=== PATIENT | male | born 1960 | race Caucasian/White ===

== ENCOUNTER 2019-06-30 02:44 | Inpatient (IN) | payer OTHER ==
[~2019-06-30] VITALS: Ht 180.3 cm; Wt 78.5 kg
[2019-06-30] MEDS ORDERED: ONDANSETRON HCL/PF 4 MG/2 ML VIAL ONE (02:54)
[2019-06-30] MEDS ORDERED: MORPHINE SULFATE INJ 4 MG/ML DISP.SYRIN ONE (02:54)
--- NOTE | 2019-06-30 02:55 | NUR ---
TO BED 3 AMBULATORY C/O LLQ ABDOMINAL PAIN WITH RECTAL BLEEDING X3 DAYS. PT AAOX4 NO ACUTE DISTRESS NOTED, RESP EVEN AND UNLABORED. PLACE PT ON CARDIAC MONITORING, CONTINUOUS POX. PENDING ER MD PATINO.
[2019-06-30] MEDS ORDERED: ONDANSETRON HCL/PF - ER 4 MG/2 ML VIAL IV ONE (03:00)
[2019-06-30] MEDS ORDERED: IV NS 0.9% 500 ML BAG IV ONE (03:00)
[2019-06-30] MEDS ORDERED: MORPHINE SULFATE INJ 2 MG/ML DISP.SYRIN IV ONE (03:00)
[2019-06-30 03:10] LABS: BASOPHILS % (AUTO) 0.3 % (0.0-2.0); EOSINOPHILS % (AUTO) 0.7 % (0.0-6.0); HEMATOCRIT 46 % (39-51); HEMOGLOBIN 15.4 g/dL (13.5-17.5); MEAN CORPUSCULAR HGB CONC 34 g/dl (31.0-36.0); MEAN CORPUSCULAR VOLUME 88 fL (80-96); MONOCYTES # (AUTO) 1.5 /CMM (0.1-1.30); NEUTROPHILS # (AUTO) 12.8 /CMM (1.8-8.9); PLATELET COUNT (AUTO) 246 /CMM (150-450); WHITE BLOOD COUNT (AUTO) 16.5 K/uL (4.3-11.0)
--- NOTE | 2019-06-30 03:14 | NUR ---
PT MEDICATED ORDERED.
[2019-06-30 03:15] LABS: CALCIUM, SERUM 8.7 mg/dL (8.5-10.1); CREATININE 1.2 mg/dL (0.6-1.3); POTASSIUM 3.8 mmol/L (3.5-5.1)
--- NOTE | 2019-06-30 03:15 | NUR ---
PT TRANSPORTED TO RADIOLOGY FOR CT ABD/PELVIS.
--- NOTE | 2019-06-30 03:31 | NUR ---
PT BACK FROM RADIOLOGY. PENDING CT RESULT.
--- NOTE | 2019-06-30 03:39 | NUR ---
ER TALKING TO RADIOLOGIST REGARDING CT ABD/PELVIS RESULT.
[2019-06-30] MEDS ORDERED: METRONIDAZOLE 500MG/ NS 100ML 100 ML IV ONE (03:43)
[2019-06-30] MEDS ORDERED: PIPERACILLIN /TAZOBACTAM 3.375 G VIAL IV ONE (03:44)
[2019-06-30 03:55] LABS: OCCULT BLOOD STOOL POSITIVE (NEGATIVE)
[2019-06-30] MEDS ORDERED: METRONIDAZOLE 500MG/ NS 100ML 500 MG in PREMIX 1 EA IV SCH (04:00)
--- NOTE | 2019-06-30 05:37 | NUR ---
REPORT CALLED TO M/S GEOVANNY CAMPOS.
[2019-06-30] MEDS ORDERED: PIPERACILLIN /TAZOBACTAM 3.375 G in IV D5W 50 ML IV SCH ×2 (06:00→12:00)
[2019-06-30] MEDS ORDERED: IV NS 0.9% 1,000 ML IV PRN ×2 (06:03→09:19)
[2019-06-30 06:30] VITALS: BP 111/74
[2019-06-30] MEDS ORDERED: ONDANSETRON HCL/PF 4 MG/2 ML VIAL IVP PRN (06:30)
[2019-06-30] MEDS ORDERED: MAG HYDROX/AL HYDROX/SIMETH 30 ML UDC PO PRN (06:30)
[2019-06-30] MEDS ORDERED: MAGNESIUM HYDROXIDE 30 ML UDC PO PRN (06:30)
[2019-06-30] MEDS ORDERED: Z GUARD REMEDY 2 OZ OINT TP PRN (06:30)
--- NOTE | 2019-06-30 06:37 | NUR ---
ROSI RN NOTE PT RECEIVED FROM ER WITH THE DX OF PERFORATED COLITIS.. A/O X 4, NO SOB NO DISTRESS NOTED. PT C/O PAIN IN LLQ. ABLE TO AMBULATE WITH STEADY GAIT. ON TELE MONITOR SR HR 72. HL IN LFA #18 G, INTACT AND PATENT. PT WENT TO BATHROOM AND NOTE STOOL WITH PINSIDE RAILS UP X 2 AND CALL LIGHT WITHIN REACH. VSS. WILL ENDORSE TO DAY SHIFT FOR CONTINUE TO CARE AND ADMISSION.
--- NOTE | 2019-06-30 07:00 | NUR ---
0700 DR. DEXTER AT BEDSIDE AND EXAMINED PATIENT WITH ORDERS MADE. ORDER NOTED AND ENDORSED TO ON COMING SHIFT.
--- NOTE | 2019-06-30 07:15 | NUR ---
RN OPENING NOTES PT IS ASLEEP IN BED WITH NS RUNNING AT 75MLS/HR WITH A LFA 18 GAUGE. ACCORDING TO PATIENT SCHEDULING COORDINATOR REPORT PT WILL BE HAVING SURGERY LATER IN THE DAY AND HAS BEEN KEPT NPO SINCE MIDNIGHT. PT HAS EQUAL CHEST RISE AND FALL WITH NO OBVIOUS SIGNS OF PAIN OR SOB. ON TELE MONITOR PT IS SR 68. BED IS LOCKED AND IN LOWEST POSITION WITH CALL LIGHT IN REACH. WILL CONTINUE TO MONITOR.
[2019-06-30 08:00] VITALS: BP 94/54
[2019-06-30] MEDS: PANTOPRAZOLE 40 MG VIAL IV SCH ×2 (08:51→17:35)
[2019-06-30] MEDS: PIPERACILLIN /TAZOBACTAM 3.375 G in IV D5W 100 ML IV SCH ×2 (10:42→19:14)
[2019-06-30] MEDS: METRONIDAZOLE 500MG/ NS 100ML 500 MG in PREMIX 1 EA IV SCH ×2 (11:59→17:35)
[2019-06-30 12:00] VITALS: BP 110/68
[2019-06-30 12:40] LABS: HEMOGLOBIN 13.3 g/dL (13.5-17.5)
--- NOTE | 2019-06-30 13:28 | NUR ---
PT PICKED UP BY [facility] [employer], PT IV STOPPED. PT CONSENT SIGNED AND PT WAS TAKEN BY BED TO OR.
[2019-06-30] MEDS ORDERED: ANESTHESIA TRAY IN PYXIS 1 EA TRAY MC ONE (13:43)
[2019-06-30] MEDS ORDERED: BUPIVACAINE 0.5 % PF 150 MG/30 ML VIAL ONE (13:43)
[2019-06-30] MEDS ORDERED: MIDAZOLAM HCL 2 MG/2ML VIAL ONE (13:50)
[2019-06-30] MEDS ORDERED: FENTANYL PF 100MCG/2ML AMPUL ONE (15:33)
[2019-06-30] MEDS ORDERED: ENOXAPARIN SODIUM 40 MG/0.4 ML DISP.SYRIN SQ SCH (15:52)
[2019-06-30 16:00] VITALS: BP_SYST 139; BP_DIAS 88; BP_DIAS 89
[2019-06-30] MEDS ORDERED: Potassium Chloride 20 MEQ in IV D5 / 0.2% NACL 1,000 ML IV PRN (16:00)
[2019-06-30] MEDS ORDERED: METOCLOPRAMIDE HCL 10 MG/2 ML VIAL IV PRN (16:00)
[2019-06-30] MEDS: IV D5/0.45 NACL W/20 MEQ KCL 1L IV PRN ×2 (17:35)
[2019-06-30] MEDS: MORPHINE SULFATE INJ 2 MG/ML DISP.SYRIN IV PRN (17:42)
[2019-06-30 18:14] LABS: APPEARANCE,URINE Cloudy (CLEAR); BILIRUBIN,URINE SMALL (NEGATIVE); BLOOD, URINE Trace-lysed Ery/uL (NEGATIVE); COLOR,URINE Other (YELLOW); KETONES,URINE 40 (NEGATIVE); LEUKOCYTE ESTERASE ,URINE Negative (NEGATIVE); NITRITE, URINE Negative (NEGATIVE); PROTEIN,URINE Negative (NEGATIVE); UGLUCOSE Negative (NEGATIVE); UROBILINOGEN,URINE 0.2 EU/dL (0.2)
[2019-06-30 19:09] LABS: BACTERIA,URINE Few /HPF (None Seen); SQUAMOUS EPITHELIAL CELL,UR Few /HPF (None Seen); URINE AMORPHOUS URATE Moderate /HPF (None Seen); WBC,URINE 0-2 /HPF (0-3)
--- NOTE | 2019-06-30 19:26 | NUR ---
RN CLOSING NOTES PT STATES HE IS HAVING MILD PAIN STILL IN ABDOMEN BUT REFUSE MEDICATION AT THIS POINT IN TIME. PT IS EASILY AWOKEN. PT CURRENTLY HAS ANTIBIOTICS RUNNING 25 MLS/HR. REPORT GIVEN TO MANAGER INVESTIGATIONS RN FOR CONTINUATION OF CARE.
[2019-06-30 20:00] VITALS: BP 127/83
[2019-06-30] MEDS ORDERED: IV NS 0.9% 250 ML IV ONE (20:00)
--- NOTE | 2019-06-30 20:00 | NUR ---
Received patient A/Ox4.S/P E.Lap,Take down Splenic Flexure,Incidental Appendectomy.Dressing C/D/I. Abdominal binder on.Abdomen soft BS active.Denies pain.Respiration even and unlabored.Encouraged Coughing and deep breathing.Incentive Spirometer provided & encouraged to use Q1hr while awake. VS stable.SR per tele monitoring.NPO with IVF infusing.FC to gravity drainage.Encouraged to turn Q 2 hrs. Patient cooperative with treatment.Continue monitoring.Call light at bedside instructed to call for assistance.
[2019-07-01] VITALS: BP 118/75
[2019-07-01] MEDS: METRONIDAZOLE 500MG/ NS 100ML 500 MG in PREMIX 1 EA IV SCH ×4 (00:06→17:01)
[2019-07-01] MEDS: PIPERACILLIN /TAZOBACTAM 3.375 G in IV D5W 100 ML IV SCH ×3 (03:00→18:10)
[2019-07-01] MEDS: IV D5/0.45 NACL W/20 MEQ KCL 1L IV PRN ×4 (03:06→12:10)
[2019-07-01 04:00] VITALS: BP 120/77
[2019-07-01] MEDS: MORPHINE SULFATE INJ 2 MG/ML DISP.SYRIN IV PRN (04:37)
--- NOTE | 2019-07-01 06:30 | NUR ---
Patient resting in no acute distress.VS stable.Remains NPO with IVF infusing. Pain medication administered.Verbalized relief.All needs anticipated and met. Patient seen by Cruzito Ocampo no new orders received.
[2019-07-01 07:19] LABS: BASOPHILS % (AUTO) 0.1 % (0.0-2.0); EOSINOPHILS % (AUTO) 0.7 % (0.0-6.0); HEMATOCRIT 36 % (39-51); HEMOGLOBIN 12.3 g/dL (13.5-17.5); LYMPHOCYTES # (AUTO) 1.2 /CMM (0.8-4.8); LYMPHOCYTES % (AUTO) 16.4 % (20.0-44.0); MEAN CORPUSCULAR HGB CONC 34 g/dl (31.0-36.0); MEAN CORPUSCULAR VOLUME 88 fL (80-96); MONOCYTES # (AUTO) 0.7 /CMM (0.1-1.30); MONOCYTES % (AUTO) 10.6 % (2.0-12.0); NEUTROPHILS # (AUTO) 5.1 /CMM (1.8-8.9); NEUTROPHILS % (AUTO) 72.2 % (43.0-81.0); PLATELET COUNT (AUTO) 176 /CMM (150-450); RED BLOOD CELL COUNT(AUTO) 4.07 MIL/uL (4.5-6.0)
--- NOTE | 2019-07-01 07:30 | NUR ---
ROSI RN NOTES PT IN BED, AAOX3, S/P EX LAP, TAKE DOWN SPLENIC FLEXURE, INCIDENTAL APPENDECTOMY BY DR. DEXTER 06/30/2019 [facility]I DRESSING WITH ABDOMINAL BINDER IN PLACE. ON RA, DENIES ANY SOB, RESPIRATION UNLABORED, INSPIROMETER AT BEDSIDE, INSTRUCTED TO USE Q 1HOUR WHILE AWAKE. ON CLEAR LIQUID DIET. WILL DC LOPEZ CATHETER TODAY. C/O SCHUMACHER WHEN CHANGING POSITION. WAS GIVEN PAIN MEDICATION EARLIER. ON CLEAR LIQUID DIET. DISCUSSED POC, VERBALIZED UNDERSTANDING. CALL LIGHT WITHIN REACH, WILL CONT TO MONITOR.
[2019-07-01 07:33] LABS: THYROID STIMULATING HORMONE 0.559 uIU/mL (0.358-3.74)
[2019-07-01 07:38] LABS: CALCIUM, SERUM 7.1 mg/dL (8.5-10.1); CREATININE 1.2 mg/dL (0.6-1.3); MAGNESIUM 1.7 mg/dL (1.8-2.4); PHOSPHORUS 2.7 mg/dL (2.5-4.9)
[2019-07-01 08:00] VITALS: BP 108/71
[2019-07-01] MEDS: Magnesium 1GM/D5W 100ML PREMIX 100 ML IV SCH ×2 (09:00→10:01)
[2019-07-01] MEDS: PANTOPRAZOLE 40 MG VIAL IV SCH ×2 (09:00→17:00)
[2019-07-01] MEDS: ENOXAPARIN SODIUM 40 MG/0.4 ML DISP.SYRIN SQ SCH (09:02)
--- NOTE | 2019-07-01 09:30 | NUR ---
MS RN NOTES DC TELE BY DR. PERERA DUE MEDS GIVEN
--- NOTE | 2019-07-01 12:10 | NUR ---
RN NOTES LOPEZ CATH DISCONTINUED. 495 ML OUTPUT.
[2019-07-01 16:00] VITALS: BP 132/90
--- NOTE | 2019-07-01 19:14 | NUR ---
MS RN CLOSING NOTES PT RESTING IN BED, AAOX3, S/P EX LAP, TAKE DOWN SPLENIC FLEXURE, INCIDENTAL APPENDECTOMY BY DR. DEXTER 06/30/2019 CDI DRESSING WITH ABDOMINAL BINDER IN PLACE. ON RA, DENIES ANY SOB, RESPIRATION UNLABORED, ON CLEAR LIQUID DIET. NO LOPEZ. TOTAL URINE OUTPUT 895 ML OUTPUT. CAN TURN FROM SIDE TO SIDE. C/O PAIN WHEN CHANGING POSITION. OFFERED PAIN MEDICATION BUT DECLINED. ON CLEAR LIQUID DIET. ALL NEEDS MET FOR NOW. CALL LIGHT WITHIN REACH, ENDORSED TO NEXT SHIFT FOR MICHELLE.
[2019-07-01 20:00] VITALS: BP 140/79
--- NOTE | 2019-07-01 20:00 | NUR ---
ms rn notes pts in bed awake alert oriented x 4 and verbally responsive ,no sob no distress noted v/s stable afebrile no complain of pain at of this time , pts s/p ex lap no bleeding noted dressing dry and intact, pts on iv fluids of d5 1/2 ns +kcl 20 meq at 125 cc/hr infusing well .all needs attended too due meds given as ordered including iv atb no ase noted, , kept pts clean dry and comfortable ,will continue to monitor pts.
[2019-07-02] MEDS: METRONIDAZOLE 500MG/ NS 100ML 500 MG in PREMIX 1 EA IV SCH ×3 (00:33→12:12)
[2019-07-02] MEDS: IV D5/0.45 NACL W/20 MEQ KCL 1L IV PRN ×2 (00:43)
[2019-07-02] MEDS: PIPERACILLIN /TAZOBACTAM 3.375 G in IV D5W 100 ML IV SCH ×3 (03:17→19:46)
--- NOTE | 2019-07-02 05:30 | NUR ---
ms rnnotes seen and examined by dr alcala today .,with order full liquid oder noted and carried out.well endorse to rn day for continuity of care.
--- NOTE | 2019-07-02 07:05 | NUR ---
MS RN OPENING NOTE RECEIVED REPORT FROM [facility] SHIFT NURSE. PT AWAKE IN BED, ALERT AND ORIENTED X 4, ON ROOM AIR, SATURATING WELL, NO SIGNS OF RESPIRATORY DISTRESS NOTED. INTRODUCED SELF TO PT AND DISCUSSED PLAN OF CARE. REPORTS PAIN AT ABDOMINAL INCISION SITE RATED AT A 4/10, DOES NOT WITH TO TAKE ANY PAIN MEDICATION AT THIS TIME. IV SITE ON LEFT FOREARM G18, PATENT, INTACT, INFUSING IV FLAGYL AT 100ML/HR AND D5/0.45 NACL POTASSIUM CHLORIDE AT 1256ML/HR, NO SIGNS OF INFILTRATION NOTED. BED IN LOW POSITION, LOCKED, CALL LIGHT WITHIN REACH.
[2019-07-02 07:29] LABS: BASOPHILS % (AUTO) 0.3 % (0.0-2.0); EOSINOPHILS % (AUTO) 3.6 % (0.0-6.0); HEMATOCRIT 37 % (39-51); HEMOGLOBIN 12.8 g/dL (13.5-17.5); LYMPHOCYTES # (AUTO) 1.2 /CMM (0.8-4.8); LYMPHOCYTES % (AUTO) 18.6 % (20.0-44.0); MEAN CORPUSCULAR HGB CONC 34 g/dl (31.0-36.0); MEAN CORPUSCULAR VOLUME 88 fL (80-96); MONOCYTES # (AUTO) 0.6 /CMM (0.1-1.30); MONOCYTES % (AUTO) 9.7 % (2.0-12.0); NEUTROPHILS # (AUTO) 4.5 /CMM (1.8-8.9); NEUTROPHILS % (AUTO) 67.8 % (43.0-81.0); PLATELET COUNT (AUTO) 202 /CMM (150-450); RED BLOOD CELL COUNT(AUTO) 4.25 MIL/uL (4.5-6.0); WHITE BLOOD COUNT (AUTO) 6.6 K/uL (4.3-11.0)
[2019-07-02 08:00] VITALS: BP 144/88
[2019-07-02] MEDS ORDERED: Magnesium 1GM/D5W 100ML PREMIX 100 ML IV SCH (08:00)
[2019-07-02] MEDS: ENOXAPARIN SODIUM 40 MG/0.4 ML DISP.SYRIN SQ SCH (08:22)
[2019-07-02] MEDS: PANTOPRAZOLE 40 MG VIAL IV SCH ×2 (08:23→17:04)
[2019-07-02 16:00] VITALS: BP 134/84
--- NOTE | 2019-07-02 18:48 | NUR ---
MS RN CLOSING NOTE PT AWAKE IN BED, ALERT AND ORIENTED X 4, ON ROOM AIR, SATURATING WELL, NO SIGNS OF RESPIRATORY DISTRESS NOTED. REPORTS PAIN AT ABDOMINAL INCISION SITE RATED AT A 4/10, REFUSED ANY PRN PAIN MEDICATION THROUGHOUT SHIFT. IV SITE ON LEFT FOREARM G18, PATENT, INTACT, PATENT. BED IN LOW POSITION, LOCKED, CALL LIGHT WITHIN REACH. PROVIDED SAFETY AND COMFORT TO PT THROUGHOUT SHIFT. ALL DUE MEDS GIVEN. WILL ENDORSE TO NOC SHIFT NURSE.
--- NOTE | 2019-07-02 19:30 | NUR ---
MS RN OPENING NOTE RECEIVED PATIENT A/O 4 WITH NO SIGNS OF DISCOMFORT. PATIENT IS ON ROOM AIR WITH NO SOB. PATIENT HAS IV ON THE LEFT FOREARM PATENT AND FLUSHING. PATIENT SKIN IS IN TACT EXCEPT FOR THE ABDOMINAL INCISION WITH NO SIGNS OF INFECTION. ALL SAFETY PRECAUTIONS ARE APPLIED SIDE RAILS UP X2, CALL LIGHT WITHIN REACH, AND BED LOCKED IN LOW POSTION. WILL CONTINUE TO MONITOR.
[2019-07-02 20:00] VITALS: BP 143/90
[2019-07-03] MEDS: PIPERACILLIN /TAZOBACTAM 3.375 G in IV D5W 100 ML IV SCH ×3 (02:08→18:39)
[2019-07-03 04:00] VITALS: BP 151/96
[2019-07-03 06:59] LABS: BASOPHILS % (AUTO) 0.5 % (0.0-2.0); EOSINOPHILS % (AUTO) 3.1 % (0.0-6.0); HEMATOCRIT 43 % (39-51); HEMOGLOBIN 14.8 g/dL (13.5-17.5); LYMPHOCYTES # (AUTO) 1.5 /CMM (0.8-4.8); LYMPHOCYTES % (AUTO) 20.9 % (20.0-44.0); MEAN CORPUSCULAR HGB CONC 34 g/dl (31.0-36.0); MEAN CORPUSCULAR VOLUME 88 fL (80-96); MONOCYTES # (AUTO) 0.6 /CMM (0.1-1.30); MONOCYTES % (AUTO) 8.8 % (2.0-12.0); NEUTROPHILS # (AUTO) 4.7 /CMM (1.8-8.9); NEUTROPHILS % (AUTO) 66.7 % (43.0-81.0); PLATELET COUNT (AUTO) 287 /CMM (150-450); RED BLOOD CELL COUNT(AUTO) 4.91 MIL/uL (4.5-6.0)
--- NOTE | 2019-07-03 07:11 | NUR ---
MS RN CLOSING NOTE PATIENT IN BED WITH SLIGHT DISCOMFORT IN THE INCISIONAL AREA. HAVE OFFERED ALTERNATIVES TO RELIEVE DISCOMFORT BUT PATIENT REFUSES. PATIENT HAS NO SIGNS OF SOB. ALL SAFETY PRECAUTIONS APPLIED. ENDORSED PATIENT TO MORNING NURSE.
--- NOTE | 2019-07-03 07:25 | NUR ---
MS/RN OPENING NOTES RECEIVED PATIENT IN BED SLEEPING COMFORTABLY. EASILY AROUSABLE. NO PAIN OR ACUTE DISTRESS AT THIS TIME. PATIENT IS ALERT AND ORIENTED X4. RESPIRATION EVN AND UNLABORED. SKIN IS DRY WARM TO TOUCH. PATIENT IS ON ROOM AIR. PATIENT HAS IV ON THE LEFT FOREARM PATENT AND INTACT. FLUSHING WELL. PATIENT NOTED WITH ABDOMINAL INCISION WITH NO SIGNS OF INFECTION. ALL NEEDS ANTICIPATED. CALL LIGHT WITHIN REACHED. SAFETY MAINTAINED. BED LOCKED AND IN LOWEST POSITION. WILL CONTINUE TO MONITOR CLOSELY.
[2019-07-03 08:00] VITALS: BP 139/77
[2019-07-03] MEDS: PANTOPRAZOLE 40 MG VIAL IV SCH ×2 (08:21→17:15)
[2019-07-03] MEDS: ENOXAPARIN SODIUM 40 MG/0.4 ML DISP.SYRIN SQ SCH (09:18)
[2019-07-03 16:00] VITALS: BP_SYST 133; BP_SYST 134; BP_DIAS 84; BP_DIAS 93
--- NOTE | 2019-07-03 16:34 | NUR ---
MS/RN NOTES RECEIVED A CALL FROM DR. JOYNER REGARDING THE RESULTS OF THE STAT KUB. READ THE RESULTS BACK AND WITH ORDERS OF REGLAN 10MG IV Q6H. ALL ORDERS NOTED AND CARRIED. OUT. WILL CONTINUE TO MONITOR PATIENT. Addendum: 07/03/19 at 1638 by EDUARDO RICHARD RN MS/RN NOTES RECEIVED A CALL FROM DR. DEXTER REGARDING THE RESULTS OF THE STAT KUB. READ THE RESULTS BACK AND WITH ORDERS OF REGLAN 10MG IV Q6H. ALL ORDERS NOTED AND CARRIED. OUT. WILL CONTINUE TO MONITOR PATIENT.
[2019-07-03] MEDS: METOCLOPRAMIDE HCL 10 MG/2 ML VIAL IV SCH ×2 (17:15→22:37)
--- NOTE | 2019-07-03 18:52 | NUR ---
MS/RN CLOSING NOTES PATIENT CONTINUES TO REMAIN IN STABLE CONDITION THROUGHOUT THE SHIFT. PROVIDED COMFORT AND SAFETY. PATIENT HAS IV ON THE LEFT FOREARM PATENT AND INTACT. FLUSHING WELL. PATIENT NOTED WITH ABDOMINAL INCISION WITH NO SIGNS OF INFECTION. ALL NEEDS ANTICIPATED. CALL LIGHT WITHIN REACHED. SAFETY MAINTAINED. BED LOCKED AND IN LOWEST POSITION. WILL CONTINUE TO MONITOR CLOSELY. ENDORSED TO PM SHIFT FOR MICHELLE.
--- NOTE | 2019-07-03 19:45 | NUR ---
MS RN RECEIVE PT IN BED PT AWAKE A/O X 4, STABLE AND NOT IN DISTRESS. NO SOB. NO C/O OF PAIN. WILL CONT TO MTR
[2019-07-03 20:00] VITALS: BP 144/92
--- NOTE | 2019-07-03 23:09 | NUR ---
PAGED AND SPOKE TO HOSPITALIST IF WE COULD ORDER IVF FOR THE PT PER PEDRO LUIS BULL NO ORDERS AT THIS TIME.
[2019-07-04] MEDS: PIPERACILLIN /TAZOBACTAM 3.375 G in IV D5W 100 ML IV SCH ×3 (02:02→19:02)
[2019-07-04 04:00] VITALS: BP 117/70
[2019-07-04] MEDS: METOCLOPRAMIDE HCL 10 MG/2 ML VIAL IV SCH ×4 (05:09→22:50)
--- NOTE | 2019-07-04 06:40 | NUR ---
MS RN ASLEEP AND EASILY AWAKEN, MONITORED FOR PAIN NO COMPLAIN OF PAIN, NO S/S OF DISTRESS, KEPT CLEAN AND DRY AND COMFORTABLE. SLEPT WELL. NEEDS ATTENDED AND ANTICIPATED. AM CARE RENDERED. S/P EX LAP ABDOMINAL BINDER IN PLACE DRESSING CLEAN NO S/S OF BLEEDING NOTED. ENCOURAGE PT TO USE INCENTIVE SPIROMETER WHILE AWAKE Q1HR. SAFETY MEASURES AT ALL TIMES. ENDORSE TO THE NEXT SHIFT. Addendum: 07/04/19 at 0645 by DUTCH HARTMAN RN ENCOURAGE AND PERFORM INCENTIVE SPIROMETER
[2019-07-04 07:06] LABS: BASOPHILS % (AUTO) 0.4 % (0.0-2.0); EOSINOPHILS % (AUTO) 2.7 % (0.0-6.0); HEMATOCRIT 40 % (39-51); HEMOGLOBIN 13.6 g/dL (13.5-17.5); LYMPHOCYTES # (AUTO) 1.5 /CMM (0.8-4.8); LYMPHOCYTES % (AUTO) 20.2 % (20.0-44.0); MEAN CORPUSCULAR HGB CONC 34 g/dl (31.0-36.0); MEAN CORPUSCULAR VOLUME 88 fL (80-96); MONOCYTES # (AUTO) 0.6 /CMM (0.1-1.30); MONOCYTES % (AUTO) 8.7 % (2.0-12.0); NEUTROPHILS # (AUTO) 4.9 /CMM (1.8-8.9); PLATELET COUNT (AUTO) 275 /CMM (150-450); WHITE BLOOD COUNT (AUTO) 7.2 K/uL (4.3-11.0)
[2019-07-04 07:39] LABS: ALBUMIN 2.6 g/dL (3.4-5.0); BILIRUBIN,TOTAL 0.5 mg/dL (0.2-1.0); CALCIUM, SERUM 8.1 mg/dL (8.5-10.1); CREATININE 1.2 mg/dL (0.6-1.3); MAGNESIUM 1.6 mg/dL (1.8-2.4); PHOSPHORUS 3.5 mg/dL (2.5-4.9); POTASSIUM 4.2 mmol/L (3.5-5.1); TOTAL PROTEIN, SERUM 5.7 g/dL (6.4-8.2)
[2019-07-04 08:00] VITALS: BP 133/90
[2019-07-04] MEDS: PANTOPRAZOLE 40 MG VIAL IV SCH ×2 (10:09→17:30)
[2019-07-04] MEDS: ENOXAPARIN SODIUM 40 MG/0.4 ML DISP.SYRIN SQ SCH (10:10)
[2019-07-04 12:00] VITALS: BP 115/72
[2019-07-04] MEDS: Magnesium 1GM/D5W 100ML PREMIX 100 ML IV SCH ×2 (12:12→13:31)
[2019-07-04] MEDS ORDERED: IV NS 0.9% 1,000 ML IV PRN (13:00)
[2019-07-04 16:00] VITALS: BP 115/72
--- NOTE | 2019-07-04 19:30 | NUR ---
MS RN NOTES PT IN BED SLEEPING. WAKES UP WHEN NAME CALLED. NO SIGNS OF SOB AND DISCOMFORT NOTED. LFA SL FLUSHED WELL AND PATENT. ALL SAFETY MEASURES IMPLEMENTED. BED AT THE LOWEST POSITION AND LOCKED, CALL LIGHT WITHIN REACH. REPORT GIVEN TO MANUEL MARTINEZ.
--- NOTE | 2019-07-04 19:50 | NUR ---
MS RN NOTES, PATIENT IN BED SLEEPING AT THIS TIME, BUT AROUSES TO VERBAL STIMULI, AT ROOM AIR BREATHING EVEN AND UNLABORED, NO SOB/ACUTE DISTRESS OR DISCOMFORT NOTED, LFA IV SITE PATENT AND INTACT, ALL SAFETY MEASURES AND NEEDS RENDERED, BED LOCKED AND LOWEST POSITION , CALL LIGHT WITHIN REACH, WILL CONTINUE TO MONITOR CLOSELY.
[2019-07-04 20:00] VITALS: BP 133/84
[2019-07-05] MEDS: PIPERACILLIN /TAZOBACTAM 3.375 G in IV D5W 100 ML IV SCH ×3 (03:15→18:02)
[2019-07-05 04:00] VITALS: BP 134/78
[2019-07-05] MEDS: METOCLOPRAMIDE HCL 10 MG/2 ML VIAL IV SCH ×4 (04:54→23:12)
--- NOTE | 2019-07-05 06:58 | NUR ---
MS RN NOTES, PATIENT IN BED SLEEPING AT THIS TIME, BUT AROUSES TO VERBAL STIMULI, AT ROOM AIR BREATHING EVEN AND UNLABORED, NO SOB/ACUTE DISTRESS OR DISCOMFORT NOTED, LFA IV SITE PATENT AND INTACT, ABDOMINAL DRESSING DRY AND CLEAN, NO DISCHARGE OR BLEEDING NOTED DURING THE SHIFT AND NO SIGNIFICANT CHANGE IN CONDITION DURING THE NIGHT, BED LOCKED AND LOWEST POSITION , CALL LIGHT WITHIN REACH, WILL ENDORSE CONTINUITY OF CARE TO ONCOMING NURSE.
[2019-07-05 07:00] LABS: BASOPHILS % (AUTO) 0.4 % (0.0-2.0); EOSINOPHILS % (AUTO) 4.5 % (0.0-6.0); HEMATOCRIT 37 % (39-51); HEMOGLOBIN 12.7 g/dL (13.5-17.5); LYMPHOCYTES # (AUTO) 1.3 /CMM (0.8-4.8); LYMPHOCYTES % (AUTO) 20.9 % (20.0-44.0); MEAN CORPUSCULAR HGB CONC 34 g/dl (31.0-36.0); MEAN CORPUSCULAR VOLUME 88 fL (80-96); MONOCYTES # (AUTO) 0.6 /CMM (0.1-1.30); NEUTROPHILS # (AUTO) 4.1 /CMM (1.8-8.9); NEUTROPHILS % (AUTO) 65.2 % (43.0-81.0); PLATELET COUNT (AUTO) 247 /CMM (150-450); RED BLOOD CELL COUNT(AUTO) 4.26 MIL/uL (4.5-6.0); WHITE BLOOD COUNT (AUTO) 6.2 K/uL (4.3-11.0)
--- NOTE | 2019-07-05 07:30 | NUR ---
MS RN NOTES PT IN BED, AAOX3, S/P EX LAP, TAKE DOWN SPLENIC FLEXURE, INCIDENTAL APPENDECTOMY BY DR. DEXTER 06/30/2019 CDI DRESSING WITH ABDOMINAL BINDER IN PLACE. ON RA, DENIES ANY SOB, RESPIRATION UNLABORED, ON CLEAR LIQUID DIET. DENIES PAIN OR DISCOMFORT, DISCUSSED POC, VERBALIZED UNDERSTANDING. CALL LIGHT WITHIN REACH, WILL CONT TO MONITOR.
[2019-07-05 07:32] LABS: CALCIUM, SERUM 7.8 mg/dL (8.5-10.1); MAGNESIUM 1.7 mg/dL (1.8-2.4); PHOSPHORUS 2.8 mg/dL (2.5-4.9); POTASSIUM 3.5 mmol/L (3.5-5.1)
[2019-07-05 08:00] VITALS: BP 143/94
[2019-07-05] MEDS: PANTOPRAZOLE 40 MG VIAL IV SCH ×2 (08:38→18:04)
[2019-07-05] MEDS: ENOXAPARIN SODIUM 40 MG/0.4 ML DISP.SYRIN SQ SCH (08:39)
--- NOTE | 2019-07-05 08:42 | NUR ---
WOUND CARE CONSULT: PT PRESENTS WITH DRY FLAT PINK AREAS TO LEFT HIP REGION WELL RED RASH TO BACK, UNKNOWN ETIOLOGY. DEFER TO MD FOR RASH. PT INDEPENDENT WITH BED MOBILITY AND CONTINENT. WILL SEE PRN. IN AGREEMENT WITH PLAN OF CARE. CURRENT BARRY SCORE IS 19. Addendum: 07/05/19 at 0845 by CRISS STYLES WNDNU Amended: Links added.
--- NOTE | 2019-07-05 09:30 | NUR ---
MS RN NOTES DUE MEDS GIVEN
[2019-07-05] MEDS: Magnesium 1GM/D5W 100ML PREMIX 100 ML IV SCH ×2 (11:28→12:36)
[2019-07-05 12:00] VITALS: BP 93/70
[2019-07-05] MEDS: ENSURE CLEAR 237 ML LIQUID (MIX BERRY) PO SCH ×2 (13:00→18:15)
[2019-07-05 16:00] VITALS: BP 139/83
--- NOTE | 2019-07-05 18:48 | NUR ---
MS RN NOTES PT IN BED, AAOX3, S/P EX LAP, TAKE DOWN SPLENIC FLEXURE, INCIDENTAL APPENDECTOMY BY DR. DEXTER 06/30/2019 CDI DRESSING WITH ABDOMINAL BINDER IN PLACE. ON RA, DENIES ANY SOB, RESPIRATION UNLABORED, ON FULL LIQUID DIET. ADVANCE TOLERATED. DENIES PAIN OR DISCOMFORT, AMBULATORY. CALL LIGHT WITHIN REACH, ALL NEEDS MET. FOR POSSIBLE DC IN AM
--- NOTE | 2019-07-05 19:42 | NUR ---
MS RN NOTES RECEIVED PT ON BED. A/O X4. ON ROOM AIR NO RESPIRATORY DISTRESS NOTED. IV ACCESS ON LFA G18 SALINE LOCK, IV ACCESS PATENT AND INTACT. HEAD OF BED ELEVATED. SIDE RAILS UP. BED IN LOW AND LOCKED POSITION. BED ALARM ON. WILL CONTINUE TO MONITOR PT CLOSELY.
[2019-07-05 20:00] VITALS: BP 128/83
[2019-07-06] VITALS: BP 128/83
[2019-07-06] MEDS: PIPERACILLIN /TAZOBACTAM 3.375 G in IV D5W 100 ML IV SCH ×2 (02:01→12:06)
[2019-07-06 04:00] VITALS: BP 136/73
[2019-07-06] MEDS: METOCLOPRAMIDE HCL 10 MG/2 ML VIAL IV SCH ×2 (04:16→12:06)
--- NOTE | 2019-07-06 07:00 | NUR ---
MS RN OPENING NOTES PT IN BED, AAOX3, ON ROOM AIR SATURATING WELL. CDI DRESSING WITH ABDOMINAL BINDER IN PLACE. DENIES ANY SOB, RESPIRATION UNLABORED. DENIES PAIN OR DISCOMFORT, DISCUSSED POC, VERBALIZED UNDERSTANDING. LFA IV #18 SL, PATENT, INTACT AND FLUSHED WELL. CALL LIGHT WITHIN REACH, BED LOW AND LOCKED, SIDE RAILS UP X2 WILL CONT TO MONITOR
--- NOTE | 2019-07-06 07:05 | NUR ---
MS RN NOTES NO ACUTE CHANGES NOTED DURING THE SHIFT. PROVIDED COMFORT AND SAFETY. NO ACTIVE BLEEDING NOTED. WILL ENDORSE TO THE AM NURSE FOR CONTINUITY OF CARE.
[2019-07-06 07:44] LABS: BASOPHILS % (AUTO) 0.4 % (0.0-2.0); EOSINOPHILS % (AUTO) 4.1 % (0.0-6.0); HEMATOCRIT 36 % (39-51); HEMOGLOBIN 12.4 g/dL (13.5-17.5); LYMPHOCYTES # (AUTO) 1.4 /CMM (0.8-4.8); LYMPHOCYTES % (AUTO) 23.3 % (20.0-44.0); MEAN CORPUSCULAR HGB CONC 35 g/dl (31.0-36.0); MEAN CORPUSCULAR VOLUME 86 fL (80-96); MONOCYTES # (AUTO) 0.5 /CMM (0.1-1.30); MONOCYTES % (AUTO) 9.3 % (2.0-12.0); NEUTROPHILS # (AUTO) 3.7 /CMM (1.8-8.9); NEUTROPHILS % (AUTO) 62.9 % (43.0-81.0); PLATELET COUNT (AUTO) 268 /CMM (150-450); RED BLOOD CELL COUNT(AUTO) 4.15 MIL/uL (4.5-6.0); WHITE BLOOD COUNT (AUTO) 5.9 K/uL (4.3-11.0)
[2019-07-06 08:00] VITALS: BP 136/79
[2019-07-06 08:21] LABS: MAGNESIUM 1.8 mg/dL (1.8-2.4); PHOSPHORUS 3.1 mg/dL (2.5-4.9); POTASSIUM 3.5 mmol/L (3.5-5.1)
[2019-07-06 08:32] LABS: CALCIUM, SERUM 7.9 mg/dL (8.5-10.1)
[2019-07-06] MEDS: PANTOPRAZOLE 40 MG VIAL IV SCH (08:51)
[2019-07-06] MEDS: ENSURE CLEAR 237 ML LIQUID (MIX BERRY) PO SCH ×2 (08:52→13:38)
[2019-07-06] MEDS: ENOXAPARIN SODIUM 40 MG/0.4 ML DISP.SYRIN SQ SCH (08:54)
--- NOTE | 2019-07-06 11:06 | NUR ---
MS RN NOTE REMOVED EVERY OTHER SKIN HUGO PER DR DEXTER'S ORDER. NO SIGN OF BLEEDING. DRESSING APPLIED.
== END 2019-07-06 15:43 | disposition home or self-care (01) | DRG 341 ==
LOC: ER 02:45 → MEDSG1 06:07 → TELE1 06:30 → TELE-TD 06:31 → MEDSG1 07-01 08:55
PROVIDERS: ADMIT Internal Medicine; ATTEND Student in an Organized Health Care Education/Training Program
PROC: 0DTJ4ZZ Resection of Appendix, Percutaneous Endoscopic Approach (ICD-10-PCS; principal; 2019-06-30)
DX: K35.80 Unspecified acute appendicitis (principal); N17.0 Acute kidney failure with tubular necrosis; A09 Infectious gastroenteritis and colitis, unspecified; K56.7 Ileus, unspecified; Z87.891 Personal history of nicotine dependence; K40.90 Unilateral inguinal hernia, without obstruction or gangrene, not specified as recurrent; R91.8 Other nonspecific abnormal finding of lung field; E86.0 Dehydration; N40.0 Benign prostatic hyperplasia without lower urinary tract symptoms
CPT/HCPCS: 36415; 71045-TC; 74018; 80048-TC; 80053-TC; 80061-TC; 81000-TC; 82272-TC; 83735-TC; 84100-TC; 84443-TC; 85025-TC; 85027-TC; 85730-TC; 86850-TC; 87081-TC; 88304-TC; 93307-TC; 97116-TC; 97530-TC; A4216; C9113; G0378; J0330; J1100; J1650; J1885; J2250; J2270; J2405; J2543; J2704; J2710; J2765; J3010; J3475; J3480; J3490; J7030; J7040; J7050; J7060